=== PATIENT | male | born 1990 | race Caucasian/White ===

== ENCOUNTER 2019-05-02 14:01 | Emergency (ER) | payer MEDICAID ==
--- NOTE | 2019-05-02 14:33 | ER Document Report ---
ED Medical Screen (RME) - General Chief Complaint: Abdominal Pain Stated Complaint: GROIN PAIN Time Seen by Provider: 05/02/19 14:25 Mode of Arrival: Ambulatory Information source: Patient Notes: This 29-year-old male presents emergency department with right-sided inguinal hernia for the past 10 years that has increased. Reports he has been unable to work for the last 4 days due to this. Denies pain with void. I have greeted and performed a rapid initial assessment of this patient. A comprehensive ED assessment and evaluation of the patient, analysis of test results and completion of the medical decision making process will be conducted by additional ED providers. Dictation of this chart was performed using voice recognition software; therefore, there may be some unintended grammatical errors. TRAVEL OUTSIDE OF THE [place] IN LAST 30 DAYS: No - Related Data Allergies/Adverse Reactions: ibuprofen [From Motrin] Allergy (Verified 10/31/15 09:07) Past Medical History - Social History Chew tobacco use (# tins/day): No Frequency of alcohol use: Rare Drug Abuse: Marijuana Pulmonary Medical History: Reports: Hx Asthma - Immunizations Immunizations up to date: Yes Hx Diphtheria, Pertussis, Tetanus Vaccination: Yes - 2010 Physical Exam - Vital signs Vitals: Temp Pulse Resp BP Pulse Ox 98.0 F 81 20 123/80 98 05/02/19 14:10 05/02/19 14:10 05/02/19 14:10 05/02/19 14:10 05/02/19 14:10 Course - Vital Signs Vital signs: Temp Pulse Resp BP Pulse Ox 98.0 F 81 20 123/80 98 05/02/19 14:25 05/02/19 14:25 05/02/19 14:25 05/02/19 14:25 05/02/19 14:25
[2019-05-02 15:07] LABS: APPEARANCE,URINE CLEAR; BILIRUBIN,URINE NEGATIVE (NEGATIVE); COLOR,URINE YELLOW; GLUCOSE, URINE NEGATIVE (NEGATIVE); KETONES,URINE NEGATIVE (NEGATIVE); LEUKOCYTE ESTERASE,URINE NEGATIVE (NEGATIVE); NITRITE,URINE NEGATIVE (NEGATIVE); PROTEIN,URINE NEGATIVE (NEGATIVE); URINE SPECIFIC GRAVITY 1.027; UROBILINOGEN,URINE NEGATIVE mg/dL (<2.0)
--- NOTE | 2019-05-02 15:40 | RADIOLOGY REPORT (SQ) ---
EXAM DESCRIPTION: U/S SCROTUM W/DOPPLER COMPLETED DATE/TIME: 05/02/2019 3:28 pm REASON FOR STUDY: inguinal hernia and testicular pain COMPARISON: None. TECHNIQUE: Static and realtime bell scale imaging of the scrotum and testes. Selected color Doppler and spectral images recorded to document blood flow. LIMITATIONS: None. FINDINGS: RIGHT: TESTICLE: The right testicle measures 5.1 x 4.0 x 3.5 cm, normal size. Normal echotexture. Normal b lood flow. No mass. EPIDIDYMIS: The head of the epididymis measures 7 x 11 x 8 mm. Normal. HYDROCELE OR VARICOCELE: No. HERNIA OR EXTRA-TESTICULAR MASS: No. OTHER: An inguinal hernia is suggested which extends into the right scrotal sac measures 8.2 x 7.0 x 4.5 cm and contains fat. No other significant finding. LEFT: TESTICLE: The left testicle measures 6.0 x 3.6 x 3.2 cm, normal size. Normal echotexture. Normal bl ood flow. No mass. EPIDIDYMIS: The head of the epididymis measures 8 x 9 x 13 mm. HYDROCELE OR VARICOCELE: No. HERNIA OR EXTRA-TESTICULAR MASS: No. OTHER: No other significant finding. IMPRESSION: 1. NO EVIDENCE OF TESTICULAR MASS OR TORSION. 2. Right inguinal hernia is suggested. TECHNICAL DOCUMENTATION: JOB ID: [id number]- All Rights Reserved Reading location - IP/workstation name: [email or web address]
--- NOTE | 2019-05-02 16:34 | ER Document Report ---
HPI - HPI Patient complains to provider of: inguinal hernia Time Seen by Provider: 05/02/19 14:25 Onset: Other - 10 yearss Quality of pain: Achy Pain Level: 5 Context: This 29-year-old male presents emergency department with right-sided inguinal hernia for the past 10 years that has increased. Reports he has been unable to work for the last 4 days due to this. Denies pain with void. Associated Symptoms: None Exacerbated by: Other Relieved by: Denies Similar symptoms previously: No Recently seen / treated by doctor: No Past Medical History - General Information source: Patient - Social History Smoking Status: Never Smoker Chew tobacco use (# tins/day): No Frequency of alcohol use: Rare Drug Abuse: Marijuana Family History: Reviewed & Not Pertinent Patient has suicidal ideation: No Patient has homicidal ideation: No Pulmonary Medical History: Reports: Hx Asthma - Immunizations Immunizations up to date: Yes Hx Diphtheria, Pertussis, Tetanus Vaccination: Yes - 2010 Vertical Provider Document - CONSTITUTIONAL Agree With Documented VS: Yes Exam Limitations: No Limitations General Appearance: WD/WN, No Apparent Distress - INFECTION CONTROL TRAVEL OUTSIDE OF THE [place] IN LAST 30 DAYS: No - HEENT HEENT: Atraumatic, Normocephalic - NECK Neck: Normal Inspection, Supple. negative: Lymphadenopathy-Left, Lymphadenopathy-Right - RESPIRATORY Respiratory: Breath Sounds Normal, No Respiratory Distress - CARDIOVASCULAR Cardiovascular: Regular Rate - GI/ABDOMEN Gastrointestinal: Abdomen Soft, Abdomen Non-Tender - REPRODUCTIVE Male Genitalia: Normal Inspection Notes: soft bulge to right inguinal area, no firmness, reduced with pressure - MUSCULOSKELETAL/EXTREMETIES Musculoskeletal/Extremeties: DOYLE KEMP - NEURO Level of Consciousness: Awake, Alert, Appropriate - DERM Integumentary: Warm, Dry Course - Re-evaluation Re-evalutation: 05/02/19 16:40 This 29-year-old male presents with complaints of inguinal hernia for the past 10 years increasing. Reports he lost his job because he cannot work because every time he lifts something it hurts. Ultrasound report notes right inguinal hernia area soft very tender to touch no erythema no warmth. Dr. Rosa surgeon called he is in the OR will call me back. 05/02/19 17:10 Dr. Rosa called back. Discussed ultrasound report and patient's symptoms. He reports patient may follow-up with him in the office. Patient was instructed this. Dictation of this chart was performed using voice recognition software; therefore, there may be some unintended grammatical errors. Urine Color YELLOW 05/02/19 14:36 Urine Appearance CLEAR 05/02/19 14:36 Urine pH 5.0 (5.0-9.0) 05/02/19 14:36 Ur Specific [place] 1.027 05/02/19 14:36 Urine Protein NEGATIVE mg/dL (NEGATIVE) 05/02/19 14:36 Urine Glucose (UA) NEGATIVE mg/dL (NEGATIVE) 05/02/19 14:36 Urine Ketones NEGATIVE mg/dL (NEGATIVE) 05/02/19 14:36 Urine Blood MODERATE (NEGATIVE) H 05/02/19 14:36 Urine Nitrite NEGATIVE (NEGATIVE) 05/02/19 14:36 Ur Leukocyte Esterase NEGATIVE (NEGATIVE) 05/02/19 14:36 Urine WBC (Auto) 1 /HPF 05/02/19 14:36 Urine RBC (Auto) 3 /HPF 05/02/19 14:36 Scrotum Ultrasound 05/02/19 14:31 IMPRESSION: 1. NO EVIDENCE OF TESTICULAR MASS OR TORSION. 2. Right inguinal hernia is suggested. 05/02/19 19:21 Dictation of this chart was performed using voice recognition software; therefore, there may be some unintended grammatical errors. - Vital Signs Vital signs: Temp Pulse Resp BP Pulse Ox 98.0 F 81 20 123/80 98 05/02/19 14:25 05/02/19 14:25 05/02/19 14:25 05/02/19 14:25 05/02/19 14:25 - Laboratory Laboratory results interpreted by me: 05/02/19 14:36 Urine Blood MODERATE H - Diagnostic Test Radiology reviewed: Reports reviewed Discharge - Discharge Clinical Impression: Right inguinal hernia Hematuria Qualifiers: Hematuria type: unspecified type Qualified Code(s): R31.9 - Hematuria, unspecified Condition: Stable Disposition: HOME, SELF-CARE Instructions: Hematuria ([facility]), Hernia ([facility]) Additional Instructions: *You have been evaluated for inguinal hernia, hematuria *take ibuprofen as indicated *Follow up with Dr Rosa, call for an appointment tomorrow *Return to ED for worsening condition, changes, needs Referrals: INGRIS LAKHANI MD [Primary Care Provider] - Follow up as needed MARCO ANTONIO ROSA MD [ACTIVE STAFF] - Follow up tomorrow (call for an appointment)
[2019-05-02 17:30] VITALS: BP 115/81
== END 2019-05-02 17:25 | disposition home or self-care (01) ==
LOC: ER 14:01
DX: K40.90 Unilateral inguinal hernia, without obstruction or gangrene, not specified as recurrent (principal); R31.9 Hematuria, unspecified; F12.10 Cannabis abuse, uncomplicated; J45.909 Unspecified asthma, uncomplicated
CPT/HCPCS: 76870; 81001; 93976; 99284

== ENCOUNTER → 2019-05-03 | Outpatient (CLI) | payer MEDICAID ==
[2019-05-03 12:49] LABS: ANION GAP 11 (5-19); BLOOD UREA NITROGEN 16 mg/dL (7-20); CALCIUM 9.9 mg/dL (8.4-10.2); CARBON DIOXIDE 24 mmol/L (22-30); CHLORIDE 107 mmol/L (98-107); GLUCOSE 81 mg/dL (75-110); POTASSIUM 4.3 mmol/L (3.6-5.0)
== END ==
LOC: OD 11:59
PROVIDERS: ATTEND Surgery
DX: Z01.818 Encounter for other preprocedural examination (principal); K40.20 Bilateral inguinal hernia, without obstruction or gangrene, not specified as recurrent
CPT/HCPCS: 36415; 80048

== ENCOUNTER 2019-05-07 10:08 | Day surgery (SDC) | payer MEDICAID ==
[~2019-05-07 10:08] MED LIST: ACETAMINOPHEN 325 MG TABLET PO PRN; CEFAZOLIN SODIUM 2 GM in DEXTROSE 5%-WATER 100 ML IV PRN; IBUPROFEN 800 MG in NORMAL SALINE 250 ML IV PRN; PREGABALIN 50 MG CAPSULE PO PRN
[2019-05-07] MEDS ORDERED: PREGABALIN 50 MG CAPSULE ONE (10:17)
[2019-05-07] MEDS ORDERED: ACETAMINOPHEN 325 MG TABLET ONE (10:17)
[2019-05-07 11:34] LABS: ANION GAP 10 (5-19); BLOOD UREA NITROGEN 14 mg/dL (7-20); CARBON DIOXIDE 24 mmol/L (22-30); CHLORIDE 106 mmol/L (98-107); GLUCOSE 84 mg/dL (75-110); POTASSIUM 4.2 mmol/L (3.6-5.0)
[2019-05-07] MEDS ORDERED: ROCURONIUM BROMIDE INJ 50 MG/5 ML VIAL IV ONE (14:38)
[2019-05-07] MEDS ORDERED: ONDANSETRON HCL INJ/PF 4 MG/2 ML SDV ONE (14:38)
[2019-05-07] MEDS ORDERED: NEOSTIGMINE METHYLSULFATE 10 MG/10 ML VIAL ONE (14:38)
[2019-05-07] MEDS ORDERED: GLYCOPYRROLATE 1 MG/5 ML VIAL ONE (14:38)
[2019-05-07] MEDS ORDERED: DEXAMETHASONE SOD PHOSPHATE INJ 4 MG/1 ML VIAL ONE (14:38)
[2019-05-07] MEDS ORDERED: FENTANYL CITRATE INJ/PF 100 MCG/2 ML AMPUL ONE (17:25)
[2019-05-07] MEDS ORDERED: PROPOFOL INJ 200 MG/20 ML VIAL IV ONE (17:25)
[2019-05-07] MEDS ORDERED: MORPHINE SULFATE 10 MG/ML INJ ONE (17:25)
[2019-05-07] MEDS ORDERED: FENTANYL CITRATE INJ/PF 250 MCG/5 ML AMPULE ONE (17:25)
[2019-05-07] MEDS ORDERED: MIDAZOLAM 2 MG/2 ML INJ ONE (17:25)
[2019-05-07] MEDS ORDERED: BUPIVACAINE HCL 0.25 % INJ/PF (2.5 MG/1 ML) 30 ML VIAL ONE (18:00)
[2019-05-07] MEDS ORDERED: DIPHENHYDRAMINE HCL 50 MG/ML VIAL IV PRN (18:55)
[2019-05-07] MEDS ORDERED: FENTANYL CITRATE INJ/PF 100 MCG/2 ML AMPUL IV PRN ×3 (18:55)
[2019-05-07] MEDS ORDERED: MORPHINE SULFATE 10 MG/ML INJ IV PRN (18:55)
[2019-05-07] MEDS ORDERED: MEPERIDINE HCL/PF INJ 25 MG/1 ML DISP.SYRIN IV PRN (18:55)
[2019-05-07] MEDS ORDERED: PROMETHAZINE HCL INJ 25 MG/1 ML VIAL IV PRN ×2 (18:55)
[2019-05-07] MEDS ORDERED: HYDROCODONE/ACETAMINOPHEN 10-325 MG TABLET PO PRN (21:57)
[2019-05-07] MEDS ORDERED: HYDROCODONE/ACETAMINOPHEN 10-325 MG TABLET ONE (21:57)
[2019-05-07] MEDS ORDERED: PROMETHAZINE HCL INJ 25 MG/1 ML VIAL ONE (22:03)
[2019-05-07] MEDS ORDERED: PROMETHAZINE HCL INJ 25 MG/1 ML VIAL IV ONE (22:30)
[2019-05-07 22:58] VITALS: BP 112/76
--- NOTE | 2019-05-08 08:56 | Discharge Summary ---
Discharge Summary (SDC) - Discharge Final Diagnosis: Bilateral inguinal hernias, right is incarcerated, left is reducible. Date of Surgery: 05/07/19 Discharge Date: 05/07/19 Condition: Stable Forms: ASU Anesthesia D/C Instruction, Discharge POC-Surgical Service Treatment or Instructions: Bathing: You can shower in 48 hours. Remove your bandage before you shower. It is normal to see a small amount of blood under the bandage. Carefully wash around your wound. It is okay to let soap and water run over your wound. Do not scrub your wound. Gently pay your wound dry. Care for your wound as directed: If you have strips of medical tape over your incision, allow them to fall off on their own. It may take 7 to 10 days for them to fall off. Do not put powders, lotions, or creams on your wound. They may cause your wound to get infected. Do not get in a bathtub, swimming pool, or hot tub until your healthcare provider says it is okay. Check your wound every day for signs of infection, such as redness, swelling, or pus. Bruising is normal and expected. Men may have bruising and swelling in the scrotum. Take deep breaths and cough: Do this 10 times each hour. This will decrease your risk for a lung infection. Take a deep breath and hold it for as long as you can. Let the air out and then cough strongly. Deep breaths help open your airway. You may be given an incentive spirometer to help you take deep breaths. Put the plastic piece in your mouth and take a slow, deep breath. Then let the air out and cough. Repeat these steps 10 times every hour. Use a pillow as a splint: Press a pillow lightly against your incision when you cough, move, or get out of bed. This may decrease pain or discomfort. You may need another person to help you get in and out of bed, a chair, or off the toilet. Activity: Get out of bed and walk the day after your surgery. This will help prevent blood clots, move your bowels after surgery, and increase healing. Start with short walks around the house. Gradually walk further each day. Do not play sports for 2 to 3 weeks. Do not lift anything heavier than 5 pounds until your healthcare provider says it is okay. This may put too much pressure on your incision and cause it to come apart. It may also increase your risk for another hernia. Drink liquids as directed: Liquids may prevent constipation and straining during a bowel movement. This will help prevent pressure on your incision, and prevent another hernia. Ask how much liquid to drink each day and which liquids are best for you. Decrease swelling: * Apply ice on your incision for 15 to 20 minutes every hour or as directed. Use an ice pack, or put crushed ice in a plastic bag. Cover it with a towel. Ice helps prevent tissue damage and decreases swelling and pain. * Elevate your scrotum on a towel. Lie in bed. Roll a small towel and place it under your scrotum. This will help decrease swelling and bruising. Driving: Do not drive for at least 1 week after surgery. Do not drive if you are taking prescription pain medication. Do not drive until it is comfortable to wear a seatbelt across your abdomen. Ask your healthcare provider when it is safe for you to drive. Return to work or school: You may be able to return to work or school in 48 to 72 hours. You may need to stay out of work if longer you have to lift heavy items at work. Do not smoke: Nicotine and other chemicals in cigarettes and cigars can prevent your wound from healing. It can also increase your risk for another inguinal hernia. Ask your healthcare provider for information if you currently smoke and need help to quit. E-cigarettes or smokeless tobacco still contain nicotine. Talk to your healthcare provider before you use these products. Referrals: MARCO ANTONIO BEACH MD [ACTIVE STAFF] - 05/15/19 3:15 pm SHILA PINON DO [Primary Care Provider] - Discharge Diet: As Tolerated Respiratory Treatments at Home: Deep Breathing/Coughing, Incentive Spirometer Discharge Activity: No Lifting Over 10 Pounds, No Lifting/Push/Pulling Home Care Assistance: None Needed Report the Following to Your Physician Immediately: Shortness of Breath, Nausea, Vomiting, Increase in Pain, Fever over 101 Degrees, Unusual Bleeding, Redness, Warmth, Drainage-Yellow, Drainage-Green
--- NOTE | 2019-05-08 09:04 | Operative Report ---
Nonrecallable Operative Report DATE OF SURGERY: 05/07/19 PREOPERATIVE DIAGNOSIS: Bilateral, symptomatic inguinal hernias. Right is incarcerated, left is reducible. POSTOPERATIVE DIAGNOSIS: Same as above OPERATION: Bilateral robot-assisted laparoscopic inguinal hernia repair with mesh. SURGEON: MARCO ANTONIO BEACH ANESTHESIA: GA TISSUE REMOVED OR ALTERED: None COMPLICATIONS: None apparent ESTIMATED BLOOD LOSS: Minimal PROCEDURE: Drains/implants: Right and left large 3 DMax inguinal hernia mesh. Procedure in detail: After informed consent was obtained, the patient was brought into the operating room and laid in the supine position. The area of the abdomen was prepped and draped in a normal sterile fashion. A liz praumbilical incision was created with a 15 blade scalpel. Dissection was carried down to the fascia using sharp and blunt dissection. The linea alba fascia was incised sharply, the abdomen was entered sharply. The balloon trocar was inserted, and pneumoperitoneum was achieved. 2 right and left lateral 8 mm robotic trochars were then placed under direct laparoscopic visualization. The robot was brought over the patient and docked appropriately. I then assumed my position at the surgeon's console. Attention was turned to the right groin. There was a large indirect inguinal hernia defect with a large amount of omentum incarcerated within it. With great difficulty the omentum was reduced into the abdominal cavity in its entirety. Next dissection of the sac was undertaken. The peritoneum was scored 3 cm superior to the defect. A preperitoneal dissection was undertaken using sharp dissection, blunt dissection, and electrocautery. The hernia sac was then freed from the cord structures, taking great care not to injure the cord structures. Once this was completed, a right-sided 3 DMax inguinal hernia mesh was placed into the preperitoneal space. It was sutured medially and superiorly using 2-0 Vicryl suture. After this was completed, the peritoneal defect was closed using 2-0 V lock suture. Attention was then turned to the left side. The peritoneum was scored in the left groin, 3 cm superior to the small indirect inguinal hernia defect. A preperitoneal dissection was undertaken using sharp dissection, blunt dissection, and electrocautery. The small hernia sac was freed from the cord structures, taking great care not to injure the cord structures. There was a lipoma of the cord that was present. This was reduced. Next, a large left-sided 3 DMax inguinal hernia mesh was placed into the preperitoneal space. It was sutured medially and superiorly using 2-0 Vicryl suture. The peritoneum was then closed using 2-0 V lock suture in simple running fashion. Once this was completed, the repairs were inspected, and found to be in good order. I scrubbed back into the case. The robot was then undocked, the trochars were removed, and pneumoperitoneum was relieved. The supraumbilical fascia was closed using 0 Vicryl suture in [id number] fashion. The overlying skin was closed using 4-0 Vicryl Rapide suture in subcuticular fashion. Dressings were placed, and the procedure was concluded. All sponge, instrument, and needle counts were correct x2. Condition: Stable.
== END 2019-05-07 22:54 | disposition home or self-care (01) ==
LOC: OROUT 10:08
PROVIDERS: ATTEND Surgery
DX: K40.30 Unilateral inguinal hernia, with obstruction, without gangrene, not specified as recurrent (principal); K40.90 Unilateral inguinal hernia, without obstruction or gangrene, not specified as recurrent
CPT/HCPCS: 49650; S2900; 36415; 80048; 86850; 86900; 86901; C1758; C1781; J0690; J1100; J1741; J2250; J2270; J2405; J2550; J2704; J2710; J3010; J3490; J7050; J7060

== ENCOUNTER 2020-01-09 17:00 | Emergency (ER) | payer MEDICAID ==
--- NOTE | 2020-01-09 17:11 | ER Document Report ---
ED Medical Screen (RME) - General Chief Complaint: Groin Pain Stated Complaint: GROIN PAIN Time Seen by Provider: 01/09/20 17:03 Primary Care Provider: SHILA PINON DO [Primary Care Provider] - Follow up as needed Mode of Arrival: Ambulatory Information source: Patient Notes: 29-year-old male presented to ED for complaint of right groin pain. He states that 6 months ago he had bilateral inguinal hernia repairs. He states 2 to 3 weeks ago he started having pain in his right groin area. He states he does move about a hip heavy equipment around during his job. He states he thought maybe he was overdoing it and it was okay except for last night at work on third shift he was moving equipment and he had excruciating pain and had to go home. He states he came in today to see if he had injured himself. He states he does not smoke drinks maybe once a month and no illicit drugs. I have ordered clean and dirty urine and a pelvic ultrasound. I have greeted and performed a rapid initial assessment of this patient. A comprehensive ED assessment and evaluation of the patient, analysis of test results and completion of medical decision making process will be conducted by an additional ED providers. TRAVEL OUTSIDE OF THE [place] IN LAST 30 DAYS: No - Related Data Allergies/Adverse Reactions: ibuprofen [From Motrin] Allergy (Verified 10/31/15 09:07) Past Medical History - Past Medical History Cardiac Medical History: Denies: Hx Coronary Artery Disease, Hx Heart Attack, Hx Hypertension Pulmonary Medical History: Reports: Hx Asthma Denies: Hx Bronchitis, Hx COPD, Hx Pneumonia Neurological Medical History: Denies: Hx Cerebrovascular Accident, Hx Seizures Musculoskeltal Medical History: Denies Hx Arthritis - Immunizations Immunizations up to date: Yes Hx Diphtheria, Pertussis, Tetanus Vaccination: Yes - 2010 Physical Exam - Vital signs Vitals: Temp Pulse Resp BP Pulse Ox 98.6 F 71 18 130/85 H 98 01/09/20 17:01/09/20 17:01/09/20 17:01/09/20 17:01/09/20 17:04 Course - Vital Signs Vital signs: Temp Pulse Resp BP Pulse Ox 98.6 F 71 18 130/85 H 98 01/09/20 17:04 01/09/20 17:04 01/09/20 17:04 01/09/20 17:04 01/09/20 17:04 Doctor's Discharge - Discharge Referrals: SHILA PINON, [Primary Care Provider] - Follow up as needed
[2020-01-09 17:39] LABS: APPEARANCE,URINE CLEAR; BILIRUBIN,URINE NEGATIVE (NEGATIVE); COLOR,URINE YELLOW; GLUCOSE, URINE NEGATIVE (NEGATIVE); KETONES,URINE NEGATIVE (NEGATIVE); LEUKOCYTE ESTERASE,URINE NEGATIVE (NEGATIVE); NITRITE,URINE NEGATIVE (NEGATIVE); PROTEIN,URINE NEGATIVE (NEGATIVE)
--- NOTE | 2020-01-09 18:13 | RADIOLOGY REPORT (SQ) ---
EXAM DESCRIPTION: U/S NON-OB PELVIS LTD W/O DOP IMAGES COMPLETED DATE/TIME: 01/09/2020 6:00 pm REASON FOR STUDY: Right groin pain, inguinal hernia repair 6 months COMPARISON: None. TECHNIQUE: Dynamic and static grayscale images acquired of the pelvis via transabdominal approach an d recorded on PACS. Additional selected color Doppler and spectral images recorded. LIMITATIONS: None. FINDINGS: Sonographic imaging was performed in both inguinal regions. No recurrent hernia is seen o n the right. The left was normal. Bilateral inguinal lymph nodes was seen. The largest was all the right and measured 2 x 1.5 x 0.7 cm. IMPRESSION: No hernia is seen. There are some nonspecific inguinal lymph nodes. TECHNICAL DOCUMENTATION: JOB ID: [id number] 2010 [employer]- All Rights Reserved Rev-10/14 Reading location - IP/workstation name: [email or web address]
--- NOTE | 2020-01-09 18:20 | ER Document Report ---
ED General - General Chief Complaint: Groin Pain Stated Complaint: GROIN PAIN Time Seen by Provider: 01/09/20 17:03 Primary Care Provider: SHILA PINON DO [Primary Care Provider] - Follow up as needed Mode of Arrival: Ambulatory TRAVEL OUTSIDE OF THE [place] IN LAST 30 DAYS: No - HPI Patient complains to provider of: groin pain Notes: Patient presents with resolved episode of right groin pain right testicle pain pain was 10/10 sharp in nature without radiation nothing made it better or worse. Patient says the pain started last night when he was moving some heavy equipment at work. Patient says he been having some dull aching pain prior to that but he thinks it got worse after he moved a heavy equipment. Patient has history of inguinal hernia repair in April. Has been doing well but has some continued nagging pain in the right side. The episode last night but much worse. Denies fever chills nausea vomiting other symptoms had normal bowel movement yesterday and today. - Related Data Allergies/Adverse Reactions: ibuprofen [From Motrin] Allergy (Verified 10/31/15 09:07) Past Medical History - General Information source: Patient - Social History Smoking Status: Unknown if Ever Smoked Family History: Reviewed & Not Pertinent - Past Medical History Cardiac Medical History: Denies: Hx Coronary Artery Disease, Hx Heart Attack, Hx Hypertension Pulmonary Medical History: Reports: Hx Asthma Denies: Hx Bronchitis, Hx COPD, Hx Pneumonia Neurological Medical History: Denies: Hx Cerebrovascular Accident, Hx Seizures Musculoskeletal Medical History: Denies Hx Arthritis - Immunizations Immunizations up to date: Yes Hx Diphtheria, Pertussis, Tetanus Vaccination: Yes - 2010 Review of Systems - Review of Systems Notes: REVIEW OF SYSTEMS: CONSTITUTIONAL: -fevers, -chills EENT: -eye pain, -difficulty swallowing, -nasal congestion CARDIOVASCULAR: -chest pain, -syncope. RESPIRATORY: -cough, -SOB GASTROINTESTINAL: Groin pain, -nausea, -vomiting, -diarrhea GENITOURINARY: -dysuria, -hematuria MUSCULOSKELETAL: -back pain, -neck pain SKIN: -rash or skin lesions. HEMATOLOGIC: -easy bruising or bleeding. LYMPHATIC: -swollen, enlarged glands. NEUROLOGICAL: -altered mental status or loss of consciousness, -headache, - neurologic symptoms PSYCHIATRIC: -anxiety, -depression. ALL OTHER SYSTEMS REVIEWED AND NEGATIVE. Physical Exam - Vital signs Vitals: Temp Pulse Resp BP Pulse Ox 98.6 F 71 18 130/85 H 98 01/09/20 17:04 01/09/20 17:04 01/09/20 17:04 01/09/20 17:04 01/09/20 17:04 - Notes Notes: PHYSICAL EXAMINATION: GENERAL: Well-appearing, well-nourished and in no acute distress. HEAD: Atraumatic, normocephalic. EYES: Pupils equal round, sclera anicteric, conjunctiva are normal. ENT: Surgical mask in place. NECK: Normal range of motion, LUNGS: No respiratory Distress, normal chest rise EXTREMITIES: Normal range of motion, No cyanosis. NEUROLOGICAL: Cranial nerves grossly intact. Normal speech, PSYCH: Normal mood, normal affect. SKIN: Warm, Dry, Course - Re-evaluation Re-evalutation: 01/09/20 18:32 Appearing man in no acute distress benign physical exam stable vitals within n ormal limits no need for analgesia Vital signs today within normal limits Urine shows blood of unknown etiology but no infection. Patient could have possibly passed a kidney stone see no longer is any symptoms Ultrasound groin and scrotum show no hernia or other gross abnormality. Patient be discharged home with prescription for oral opioids Recommend follow-up at his PCP and surgeon. Given strict return precautions - Vital Signs Vital signs: Temp Pulse Resp BP Pulse Ox 98.6 F 71 18 130/85 H 98 01/09/20 17:04 01/09/20 17:04 01/09/20 17:04 01/09/20 17:04 01/09/20 17:04 - Laboratory Laboratory results interpreted by me: 01/09/20 17:15 Urine Blood SMALL H Urine Urobilinogen 4.0 H Discharge - Discharge Clinical Impression: Groin pain Qualifiers: Laterality: right Qualified Code(s): R10.31 - Right lower quadrant pain Condition: Stable Disposition: HOME, SELF-CARE Instructions: Abdominal Pain ([facility]) Prescriptions: Oxycodone HCl [Oxycontin Ir 5 Mg Tablet] 5 mg PO Q4H PRN #15 tablet PRN Reason: For Pain Referrals: SHILA PINON DO [Primary Care Provider] - Follow up as needed MARCO ANTONIO BEACH MD [ACTIVE STAFF] - Follow up as needed
[2020-01-09 18:50] VITALS: BP 124/64
[2020-01-09 19:15] LABS: CHLAM PCR NOT DETECTED (NOT DETECT)
== END 2020-01-09 18:51 | disposition home or self-care (01) ==
LOC: ER 17:00
DX: R10.31 Right lower quadrant pain (principal); N50.811 Right testicular pain; X50.0XXA Overexertion from strenuous movement or load, initial encounter; Z88.8 Allergy status to other drugs, medicaments and biological substances; J45.909 Unspecified asthma, uncomplicated
CPT/HCPCS: 76857; 81001; 87491; 87591; 99284